=== PATIENT | male | born 1965 | race Caucasian/White ===

== ENCOUNTER → 2016-08-01 | Outpatient (CLI) | payer BC ==
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
== END | disposition home or self-care (01) ==
LOC: RADXRYALE 09:13
PROVIDERS: ATTEND Internal Medicine
DX: S22.43XA Multiple fractures of ribs, bilateral, initial encounter for closed fracture (principal)
CPT/HCPCS: 71111

== ENCOUNTER → 2016-08-04 | Outpatient (CLI) | payer BC ==
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
== END | disposition home or self-care (01) ==
LOC: RADCTMAIN 09:21
PROVIDERS: ATTEND Internal Medicine
DX: S09.90XS Unspecified injury of head, sequela (principal)
CPT/HCPCS: 70450

== ENCOUNTER → 2017-11-25 | Outpatient (CLI) | payer BC ==
--- NOTE | 2017-11-25 07:43 | US ---
EXAMINATION TYPE: US abdomen limited DATE OF EXAM: 11/25/2017 COMPARISON: NONE CLINICAL HISTORY: R74.8 Elevated liver enzymes. Elevated liver enzymes EXAM MEASUREMENTS: Liver Length: 15.0 cm Gallbladder Wall: 0.2 cm CBD: 0.4 cm Right Kidney: 10.2 x 6.0 x 4.3 cm Technical limitations due to large amount of overlying bowel content Pancreas: Obscured by bowel gas Liver: attenuating, difficult to penetrate, hypoechoic area = 2.2 x 1.1 x 1.1cm probable focal spari ng Gallbladder: no evidence of stones Evidence for sonographic Nj's sign: no CBD: wnl Right Kidney: no evidence of stones IMPRESSION: 1. Fatty hepatic infiltration noted. 2. Focal fatty hepatic spine.
== END | disposition home or self-care (01) ==
LOC: RADUSWWP 06:53
DX: K76.0 Fatty (change of) liver, not elsewhere classified (principal)
CPT/HCPCS: 76705

== ENCOUNTER → 2020-08-22 | Outpatient (CLI) | payer BC ==
--- NOTE | 2020-08-22 15:00 | CONS ---
CONSULTATION DATE OF SERVICE: 08/22/2020 This 54-year-old gentleman had been evaluated in Sleep Center for possible obstructive sleep apnea-hypopnea syndrome. HISTORY OF PRESENT ILLNESS/SLEEP-WAKE EVALUATION: Patient usual sleep schedule from 9 p.m. to 4 a.m. on weekdays and from 11 p.m. to 8 a.m. on weekends. Sometimes it takes more than 30 minutes for him to fall asleep, although no TV in bedroom. He sleeps usually on the side position. He snores and wakes up from sleep every hour with 2 episodes of nocturia. According to patient about 5 years ago he had a sleep study which showed that he has obstructive sleep apnea. After that, he tried to use CPAP, but was not able to use it. He wanted to be re-evaluated and treated. [place] Sleepiness Scale today is significantly increased to 13. PAST MEDICAL HISTORY: Positive for hypertension, acid reflux, hyperlipidemia. PAST SURGICAL HISTORY: Bilateral knee replacement. MEDICATIONS: Pantoprazole 40 mg once a day, atorvastatin 10 mg once a day, triamterene 25 mg once a day, aspirin 81 mg once a day. SOCIAL HISTORY: Negative for smoking. Alcohol consumption occasional. FAMILY HISTORY: Cancer, diabetes. REVIEW OF SYSTEMS: Multiple awakenings from sleep, sleepiness during the day. PHYSICAL EXAMINATION: GENERAL: gentleman without distress. VITAL SIGNS: BP 152/104, HR 80, RR 15, height 5 feet 10-1/2 inches, weight 274.6 pounds, temperature 98.7, oxygen saturation at room air 97%. HEENT: PERRLA, EOMI. Oropharynx low position of soft palate. NECK: Wide 20 inches in circumference. LUNGS: Clear to percussion and to auscultation. Good air exchange. No wheezing or rhonchi. HEART: S1, S2 regular. No murmurs, gallops, or rubs. ABDOMEN: Obese. EXTREMITIES: No clubbing or cyanosis. BODY PIERCER: Awake, alert, and oriented X3. Cranial nerves 2 to 7 intact. There is no fasciculation or atrophy. noted. No focal deficits observed. IMPRESSION: 1. Snoring, multiple awakenings from sleep, wide neck 20 inches, small oropharyngeal air space, sleepiness with Hooper Sleepiness Scale 13, obstructive sleep apnea- hypopnea syndrome. 2. Obesity. 3. Hypertension. 4. Acid reflux. 5. Hyperlipidemia. 6. Status post bilateral knee replacement. PLAN: 1. Home sleep apnea test for evaluation of patient's breathing during sleep. 2. Following plan after reviewing results of the sleep study. 3. Losing weight. 4. Sleep hygiene with regular time in bed for 7-1/2 hours. 5. No driving if feeling sleepiness. 6. Preferable position during sleep on the side. Thank you very much for referring this patient for consultation. Sincerely, Patrice Howard MD, PhD, FAASM Diplomat of [place] [employer] [place] [employer] Trucking Manager of [facility] [place] MMODL / IJN: [id number] /
== END ==
CPT/HCPCS: 99211

== ENCOUNTER → 2020-11-01 | Outpatient (CLI) | payer BC ==
--- NOTE | 2020-11-02 05:18 | SFUN ---
SLEEP CENTER FOLLOW UP NOTE DATE OF SERVICE: 11/01/2020 55-year-old gentleman who has been followed in Sleep Center for treatment of obstructive sleep apnea-hypopnea syndrome. Recently the patient home sleep apnea test which showed moderate obstructive sleep apnea-hypopnea syndrome and I discussed results of sleep study with patient in detail. Subsequently the patient was started on treatment with Auto PAP and today is his first visit while he is on CPAP therapy. The patient received CPAP unit more than one month ago, but about 10 days ago because he has had some mechanical problems with the unit the unit was replaced for another one. The patient feels better with the CPAP. Sleeps better and feels better during the day. [place] Sleepiness Scale today is 7. I checked CPAP unit. Range of the pressure 5-18 automatic regimen. Average pressure is 12.7 cm of water, usage 100% of the time and 90% of the time more than 4 hours with average usage is 6.5 hours per night. Leak is 4 L/minute which is normal. Apnea- hypopnea index is only 1.5, which is perfect. MEDICATIONS: Pantoprazole 40 mg once a day, atorvastatin 10 mg once a day, Triamterene 25 mg once a day. Aspirin 81 mg once a day. PHYSICAL EXAMINATION: GENERAL: Patient in no distress. BP 128/86, HR 97, RR 18, weight 272, temp 97.5, oxygen saturation at room air 97%. Oropharynx low position of soft palate. Neck is wide, 20 inches in circumference. Neck: Supple, no JVD. Thyroid is not palpable. LUNGS: Clear to percussion and to auscultation. Good air exchange. No wheezing or rhonchi. HEART: S1, S2 regular. No murmurs, gallops, or rubs. ABDOMEN: Obese. Soft and nontender. Bowel sounds are present. No organomegaly appreciated. EXTREMITIES: No clubbing or cyanosis. SYSTEMS INTEGRATION ENGINEER: Awake, alert, and oriented X3. Cranial nerves 2 to 7 intact. There is no fasciculation or atrophy. noted. No focal deficits observed. IMPRESSION: 1. Moderate obstructive sleep apnea-hypopnea syndrome by results of home sleep apnea test. Apnea-hypopnea index 24.6. The patient demonstrated close to 100% compliance with treatment, benefitting from treatment. Normal respiration on CPAP. 2. Obesity. 3. Hypertension. 4. Acid reflux. 5. Hyperlipidemia. 6. Status post bilateral knee replacement. PLAN: 1. Patient will continue to use PAP equipment every night for the whole night. 2. Sleep hygiene with regular time in bed for at least 7-1/2 to 8 hours. 3. Precautions related to driving. No driving if feeling sleepiness. 4. I will maintain all necessary prescription for PAP supplies including mask, tube, filters. 5. Watching weight. 6. Follow-up visit in 6 months or earlier if patient has any problems. Thank you very much for allowing me to participate in management of your patient. Sincerely, Patrice Howard MD, PhD, FAASM Diplomat of [employer] Principal of [facility] [place] MMODL / LUCASN: [id number] /
== END ==
LOC: SLEEP 15:30
PROVIDERS: ATTEND Internal Medicine
DX: G47.33 Obstructive sleep apnea (adult) (pediatric) (principal); E66.9 Obesity, unspecified; I10 Essential (primary) hypertension; K21.9 Gastro-esophageal reflux disease without esophagitis; E78.5 Hyperlipidemia, unspecified; Z96.653 Presence of artificial knee joint, bilateral; Z79.899 Other long term (current) drug therapy

== ENCOUNTER 2020-11-14 07:19 | Day surgery (SDC) | payer BC ==
[2020-11-12 10:12] VITALS: BMI 35.2
[~2020-11-14 07:19] MED LIST: DEXAMETHASONE SOD PHOSPHATE 4 MG/ML 1 ML VIAL IV ONE; DEXAMETHASONE SOD PHOSPHATE 4 MG/ML 1 ML VIAL IV PRN; FAMOTIDINE 20 MG/2 ML VIAL IV PRN; LACTATED RINGERS 1,000 ML IV SCH; LIDOCAINE 1% (10MG/ML) FOR IV START INTRADERMA PRN; ONDANSETRON 4 MG/2 ML VIAL IVP ONE; ONDANSETRON 4 MG/2 ML VIAL IVP PRN
[2020-11-14 08:29] VITALS: TEMP 97.8
[2020-11-14] MEDS: OXYMETAZOLINE 0.05% NASL SPRAY 1 SPRAY BOTTLE EA NOSTRIL PRN ×5 (08:48→09:09)
[2020-11-14] MEDS ORDERED: fentaNYL (PF) 50 MCG/ML 2 ML AMP ONE (09:44)
[2020-11-14] MEDS ORDERED: MIDAZOLAM 2 MG/2 ML VIAL ONE (09:44)
[2020-11-14] MEDS ORDERED: LIDOCAINE 1% INJ 10MG/ML (20 ML MDV) ONE (09:44)
[2020-11-14] MEDS ORDERED: PROPOFOL 10 MG/ML 20 ML VIAL IV ONE (09:44)
[2020-11-14] MEDS ORDERED: SUCCINYLCHOLINE CHLORIDE VIAL 200 MG/10 ML VIAL IV ONE (09:44)
[2020-11-14] MEDS ORDERED: BACITRACIN ZINC 500 UNIT/GM OINT 28.4 GM TUBE TOPICAL ONE ×2 (09:48→10:32)
[2020-11-14] MEDS ORDERED: LIDOCAINE 1%-EPI 1:100,000 20 ML VIAL SUBMUCOSAL ONE ×3 (09:48→10:01)
--- NOTE | 2020-11-14 10:44 | P.OP ---
Date of Procedure: 11/14/20 Preoperative Diagnosis: Deviated nasal septum Inferior turbinate hypertrophy Obstructive sleep apnea Postoperative Diagnosis: Same Procedure(s) Performed: Septoplasty Outfracture and submucosal inferior turbinates Uvulopalatopharyngoplasty Anesthesia: CAROLA Surgeon: Joe Cole Estimated Blood Loss (ml): 5 Pathology: other (Nasal septal bone and cartilage and uvula) Condition: stable Disposition: PACU Indications for Procedure: The 55-year-old white male with chronic nasal airway obstruction and snoring as well as sleep apnea with RDI of 24 Operative Findings: Nasal septum deviated to the left anteriorly to the right posteriorly inferior turbinates are hypertrophied bilaterally. The uvula and soft palate are redundant and low-lying is status post tonsillectomy Description of Procedure: DESCRIPTION OF PROCEDURE: The patient was brought to the operative suite, placed in the supine position. The patient underwent induction of general anesthesia with oral endotracheal intubation without difficulty. The patient was prepped and draped in the usual aseptic fashion. 1% lidocaine with 1:100,000 epinephrine was infused submucosally on both sides of the nasal septum. While this was taking vasoconstrictive effect, the inferior turbinates were infractured with a Burleigh elevator. Partial submucous resection of the inferior turbinates was performed with Coblation device ablating and thus removing a portion of the submucosal soft tissue. The inferior turbinates were then outfractured with a Burleigh elevator. A left hemitransfixion incision was then made through the mucoperichondrial. Mucoperiosteal flap on the left elevated. Bony cartilaginous junction was disarticulated and mucoperiosteal flap on the right was elevated. Bony nasoseptal deformity were removed with Veronica forceps and an inferior cartilaginous strip was removed, leaving a full 1.5 cm caudal strut. Checking intranasally, this corrected the nasal septal deformities and the hemitransfixion incision was closed with running 4-0 chromic suture. The bilateral Saldana airway splints coated in bacitracin ointment were placed in the nasal cavities and sutured transseptally with 4-0 nylon suture. The McIvor mouth gag was placed and soft palate was palpated. No submucous cleft was noted. The uvula was grasped and retracted anteriorly to ascertain the natural crease and the soft palate. The uvula and a small portion of the soft palate were then excised with sharp dissection technique and hemostasis gained with suction cautery. The free edges of the mucosa was then closed with simple interrupted 3-0 Vicryl sutures. Excellent hemostasis was noted. The patient was suctioned in oral gastric fashion and the McIvor mouth gag was removed. The patient was allowed to emerge from general anesthesia having tolerated procedure well was extubated in the operating suite and transferred to the postop recovery area in satisfactory condition..
[2020-11-14] MEDS: HYDROmorphone 0.5 MG/0.5 ML SYRINGE IVP PRN ×2 (11:08→11:13)
[2020-11-14 11:31] VITALS: RESP 16
[2020-11-14] MEDS ORDERED: HYDROcodone/APAP 7.5-325MG 1 EACH TAB ONE (12:05)
[2020-11-14] MEDS ORDERED: HYDROcodone/APAP 7.5-325MG 1 EACH TAB PO ONE (12:05)
[2020-11-14 12:36] VITALS: BP 144/95; PULSE 68
== END 2020-11-14 12:58 | disposition home or self-care (01) ==
LOC: OR 07:19
PROVIDERS: ATTEND Otolaryngology
DX: J34.2 Deviated nasal septum (principal); J34.3 Hypertrophy of nasal turbinates; G47.33 Obstructive sleep apnea (adult) (pediatric); K21.9 Gastro-esophageal reflux disease without esophagitis; Z20.822 Contact with and (suspected) exposure to COVID-19; E66.9 Obesity, unspecified; Z68.35 Body mass index [BMI] 35.0-35.9, adult; Z96.60 Presence of unspecified orthopedic joint implant; Z82.61 Family history of arthritis; Z83.42 Family history of familial hypercholesterolemia; Z80.0 Family history of malignant neoplasm of digestive organs; Z79.82 Long term (current) use of aspirin; I10 Essential (primary) hypertension; E78.5 Hyperlipidemia, unspecified; Z79.899 Other long term (current) drug therapy
CPT/HCPCS: 84132; 88300; 88302; 87635; 30520; 42145; 30140; J2250; J0330; J1100; J2405; J0690; J2001; J3010; J2704; J1170

== ENCOUNTER 2023-12-16 05:59 | Day surgery (SDC) | payer BC ==
[2023-12-14 13:41] VITALS: BMI 33.9
[2023-12-16] MEDS ORDERED: LIDOCAINE 1% (10MG/ML) FOR IV START INTRADERMA PRN (06:28)
[2023-12-16] MEDS: LACTATED RINGERS 1,000 ML IV SCH (06:58)
[2023-12-16 07:03] VITALS: RESP 16; TEMP 97.8
[2023-12-16] MEDS: IV FLUID CONTINUATION 1,000 ML IV ONE (07:04)
[2023-12-16] MEDS ORDERED: PROPOFOL 10 MG/ML 20 ML VIAL IV ONE (07:35)
[2023-12-16] MEDS ORDERED: LIDOCAINE 1% INJ 10MG/ML (20 ML MDV) ONE (07:35)
--- NOTE | 2023-12-16 07:57 | P.PCN ---
Date of Procedure: 12/16/23 Procedure(s) Performed: Brief history: Patient is a pleasant 58-year-old white male scheduled for an elective upper endoscopy as well as colonoscopy as a part of evaluation of GERD/abdominal pain and change in bowel habits Procedure performed: Esophagogastroduodenoscopy with biopsy Colonoscopy Preoperative diagnosis: GERD/abdominal pain and change in bowel habits Anesthesia: MAC Procedure: After informed consent was obtained from the patient was brought into the endoscopy unit and IV sedation was administered by anesthesia under continuous monitoring. Initially upper endoscopy was done. The Olympus GF 160 video endoscope was inserted inserted into the mouth and esophagus intubated without any difficulty and was gradually advanced into the stomach and duodenum and carefully examined. The bulb and second part of the duodenum appeared normal. The scope was then withdrawn into the stomach adequately insufflated with air and upon careful examination the antrum and body, cardia and fundus appeared normal. Multiple small gastric polyps noted which were biopsied. The scope was then withdrawn into the esophagus. The GE junction was located at 40 cm to the incisors. It appeared regular with no erythema erosions or ulcerations. Rest of the esophagus appeared normal. Patient tolerated the procedure well. At this time the patient continued to remain sedation. Initial digital rectal examination was normal. Olympus CF 160 video colonoscope was then inserted into the rectum and gradually advanced to the cecum without any difficulty. Careful examination was performed as the scope was gradually being withdrawn. The prep was excellent. The cecum, ascending colon, transverse colon, descending colon, sigmoid colon and rectum appeared normal. Retroflexion was performed in the rectum and no lesions were noted. Patient tolerated the procedure well. Impression: 1. Upper endoscopy revealed multiple small gastric polyps s/p biopsy but no evidence of esophagitis or peptic ulcer disease 2. Colonoscopy was within normal limits with no evidence of colorectal neoplasia Recommendations: Findings of this examination were discussed with the patient as well as his family. He was advised to follow-up with the biopsy results. Recommend a repeat screening colonoscopy in 10 years.
[2023-12-16 08:19] VITALS: BP 128/91; PULSE 66
== END 2023-12-16 08:33 | disposition home or self-care (01) ==
LOC: ORWHC2ENDO 05:59
PROVIDERS: ATTEND Internal Medicine Gastroenterology
DX: K31.7 Polyp of stomach and duodenum (principal); K21.9 Gastro-esophageal reflux disease without esophagitis; R19.4 Change in bowel habit; I10 Essential (primary) hypertension; E78.5 Hyperlipidemia, unspecified; Z98.890 Other specified postprocedural states; Z79.82 Long term (current) use of aspirin; Z90.49 Acquired absence of other specified parts of digestive tract; Z79.899 Other long term (current) drug therapy
CPT/HCPCS: 45378; 43239; J2001; J2704; 88305